=== PATIENT | male | born 1950 | race African-American/Black ===

== ENCOUNTER 2019-06-01 16:19 | Inpatient (IN) | payer MEDICARE, OTHER ==
[~2019-06-01] VITALS: Ht 188 cm; Wt 78.5 kg
[~2019-06-01 16:19] MED LIST: ALBUTEROL2.5 MG/3 M HHN; ALBUTEROL2.5 MG/3 M INH; AMLODIPINE BESY10 MG PO; ASPIR 8181 MG ORAL; ASPIRIN EC325 MG ORAL; ATORVASTATIN CA40 MG ORAL; CARDIAZEM CD240 MG ORAL; CARDIZEM CD180 MG ORAL; CARDIZEM CD240 MG ORAL; CARDIZEM60 MG ORAL; CATAPRES0.1 MG ORAL; DULERA 200 MCG/13 GM IH; ECOTRIN81 MG ORAL; FERROUS SULFAT325 M2 ORAL; FERROUS SULFAT325 MG ORAL; FINASTERIDE5 MG PO; FLOMAX0.4 MG ORAL; FUROSEMIDE40 MG ORAL; FUROSEMIDE80 MG ORAL; HYDRALAZINE HCL50 MG ORAL; HYDROCHLOROTH12.5 M1 PO; HYTRIN5 MG PO; INDERAL10 MG ORAL; JANUVIA50 MG ORAL; KEFLEX500 M1 PO; LASIX20 M1 ORAL; LIPITOR80 MG ORAL; LISINOPRIL20 MG ORAL; LISINOPRIL40 MG ORAL; MAGNESIUM OXID400 M1 ORAL; METOPROLOL SUC100 MG ORAL; METOPROLOL TART50 MG ORAL; NEURONTIN300 MG ORAL; NORCO 5-325 TA1 EAC1 ORAL; NORCO 5-325 TA1 EACH ORAL; NORVASC2.5 MG PO; PROMETHAZINE-C118 M1 ORAL; PROSCAR5 MG ORAL; QVAR7.3 GM INH; RANITIDINE HCL150 MG ORAL; SPIRIVA INHALE1 PUF1 INH; SPIRIVA18 MCG INH; SPIRONOLACTONE100 MG ORAL; TAMSULOSIN HCL0.4 MG ORAL; TAPAZOLE10 MG ORAL; TAPAZOLE5 MG ORAL; TRAMADOL HCL50 MG ORAL; VENTOLIN HFA18 GM INH; WARFARIN SODIU2.5 MG ORAL; XARELTO10 MG ORAL; XARELTO15 MG ORAL; ZAROXOLYN2.5 MG ORAL
[2019-06-01 16:35] VITALS: BP 106/67
--- NOTE | 2019-06-01 16:35 | NUR ---
Patient ANA from [facility] d/t 11/28 aching upper left chest pain x 60 minutes. Patient has hx of MA and stroke. Patient states the chest pain does not feel like chest pain he previously had, currently has no complaint of chest pain. 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 No s/s of acute distress noted.
[2019-06-01] MEDS ORDERED: Ipratropium 0.02% Inh Soln 2.5ml UD HHN ONE (16:45)
[2019-06-01] MEDS ORDERED: Albuterol ud Inhalation HHN ONE (16:45)
[2019-06-01 17:28] LABS: INR 1.2 (0.9-1.1)
[2019-06-01 17:29] LABS: ANION GAP 12 mmol/L (5-15); BLOOD UREA NITROGEN 41 mg/dL (7-18); CARBON DIOXIDE 24 MMOL/L (21-32); CHLORIDE 103 MMOL/L (98-107); CREATININE 1.3 MG/DL (0.55-1.30); POTASSIUM 4.2 MMOL/L (3.5-5.1); SODIUM 139 MMOL/L (136-145)
[2019-06-01 17:40] LABS: ALANINE AMINOTRANSFERASE 27 U/L (12-78); ALBUMIN 3.1 G/DL (3.4-5.0); ALBUMIN/GLOBULIN RATIO 0.8 (1.0-2.7); ALKALINE PHOSPHATASE 89 U/L (46-116); ASPARTATE AMINO TRANSFERASE 24 U/L (15-37); BILIRUBIN,TOTAL 0.5 MG/DL (0.2-1.0)
[2019-06-01 18:35] VITALS: BP 98/84
--- NOTE | 2019-06-01 19:12 | NUR ---
ED Nurse Note: Handoff report given to Lucinda YANES
--- NOTE | 2019-06-01 19:15 | NUR ---
ED Nurse Note: Pt report received from FARZANA Raymond. Pt is in no acute distress at this time. RN bedside for belongings list and blood draw. Vital signs are stable. Awaiting on bed on unit, will continue to monitor.
--- NOTE | 2019-06-01 19:33 | NUR ---
ED Nurse Note: Patient refusing blood redraw. Dr. Choi aware. Lab marketing performance analyst at bedside to draw blood, patient also refusing marketing performance analyst.
--- NOTE | 2019-06-01 19:40 | NUR ---
ED Nurse Note: Pt instructed that he needed IV for floor admision and blood draw. Pt agreed. IV line in R ac established. Pt was uncoopeative and pt moved down in bed after being instructed not to do so due to fall risk and IV line was no longer patent. New IV established in R forearm.
--- NOTE | 2019-06-01 20:05 | NUR ---
ED Nurse Note: Labs drawn by RN and sent to lab.
--- NOTE | 2019-06-01 20:30 | NUR ---
ED Nurse Note: Receiving nurse on floor informed of patient uncooperative behavior and pulling of IV lines.
--- NOTE | 2019-06-01 20:30 | NUR ---
ED Nurse Note: Report given to FARZANA Gay.
--- NOTE | 2019-06-01 20:31 | Emergency Room Report ---
History of Present Illness General Chief Complaint: Chest Pain Source: Patient, Medical Record Present Illness HPI 69-year-old male presents ED for evaluation. Brought in by EMS complaining of chest pain. Started about 30 minutes ago. [facility] Chest pain was left-sided, cramping, 7 out of 10, nonradiating. Was given nitro x2 by EMS with chest pain resolved. Notes shortness of breath. Notes history of COPD. Denies fevers or chills. No other aggravating relieving factors. Denies any other associated symptoms Allergies: Coded Allergies: NO KNOWN DRUG ALLERGIES (Unverified Allergy, Unknown, 06/18/14) Patient History Past Medical History: HTN, CHF, AFib, asthma, COPD, CVA/TIA, renal disease Past Surgical History: none Pertinent Family History: none Social History: Denies: smoking, alcohol use, drug use Immunizations: UTD Reviewed Nursing Documentation: PMH: Agreed; PSxH: Agreed Nursing Documentation-PMH Past Medical History: No History, Except For Hx Cardiac Problems: Yes - A-fib, CHF, PVD, STENT Hx Hypertension: Yes - MRSA Hx Pacemaker: No Hx Asthma: Yes Hx COPD: Yes Hx Diabetes: No Hx Cancer: No Hx Gastrointestinal Problems: No Hx Dialysis: Yes - Kidney failure Hx Neurological Problems: Yes - BPH Hx Cerebrovascular Accident: Yes - left sided weakness Hx Transient Ischemic Attacks: Yes Hx Seizures: No Review of Systems All Other Systems: negative except mentioned in HPI Physical Exam Vital Signs Date Time Temp Pulse Resp B/P (MAP) Pulse Ox O2 Delivery O2 Flow Rate FiO2 06/01/19 16:29 97.9 75 18 106/67 (80) 99 Nasal Cannula 3.0 Sp02 EP Interpretation: reviewed, normal General Appearance: no apparent distress, alert, GCS 15, non-toxic Head: normocephalic, atraumatic Eyes: bilateral eye normal inspection, bilateral eye PERRL ENT: hearing grossly normal, normal pharynx, no angioedema, normal voice Neck: full range of motion, supple/symm/no masses Respiratory: chest non-tender, speaking full sentences, wheezing Cardiovascular #1: regular rate, rhythm, no edema Cardiovascular #2: 2+ carotid (R), 2+ carotid (L), 2+ radial (R), 2+ radial (L) , 2+ dorsalis pedis (R), 2+ dorsalis pedis (L) Gastrointestinal: normal bowel sounds, non tender, soft, non-distended, no guarding, no rebound Rectal: deferred Genitourinary: normal inspection, no CVA tenderness Musculoskeletal: back normal, normal range of motion, gait/station normal, non- tender Neurologic: alert, motor strength/tone normal, oriented x3, sensory intact, responsive, speech normal Psychiatric: judgement/insight normal, memory normal, mood/affect normal, no suicidal/homicidal ideation Reflexes: 3+ bicep (R), 3+ bicep (L), 3+ tricep (R), 3+ tricep (L), 3+ knee (R) , 3+ knee (L) Lymphatic: no adenopathy Medical Decision Making Diagnostic Impression: Primary Impression: ACS (acute coronary syndrome) Additional Impressions: COPD exacerbation CHF (congestive heart failure) Qualified Codes: I50.9 - Heart failure, unspecified Anemia Qualified Codes: D64.9 - Anemia, unspecified ER Course Hospital Course 69 yo male presents ED for chest pain. Shortness of breath Differential diagnoses include: TX/unstable angina, contusion, muscle strain, PTX, rib fracture Clinical course Patient placed on stretcher. 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 After initial history and physical I ordered labs, EKG, chest x-ray, nebs labs reviewed- trop 0.036, BNP elevated, Hb 5.0 EKG- afib, no acute ischemic changes interpreted by me Chest x-ray- cardiomegaly Given breathing treatments. Given aspirin. Blood ordered. Case discussed with Dr. Bhatt and he agreed to accept the patient to his service for further care and support I. I feel this is a highly complex case requiring extensive working including EKG/Rhythm strip, Xray/CT/US, Blood/urine lab work, repeat exams while in ED, and administration of strong opiates/narcotics for pain control, admission to hospital or close patient follow up. Diagnosis - ACS, COPD, CHF, anemia admitted to telemetry in serious condition Labs Test 06/01/19 16:45 06/01/19 17:15 06/01/19 20:00 Prothrombin Time 12.7 SEC (9.30-11.50) Prothromb Time International Ratio 1.2 (0.9-1.1) Activated Partial Thromboplast Time 25 SEC (23-33) Sodium Level 139 MMOL/L (136-145) Potassium Level 4.2 MMOL/L (3.5-5.1) Chloride Level 103 MMOL/L (98-107) Carbon Dioxide Level 24 MMOL/L (21-32) Anion Gap 12 mmol/L (5-15) Blood Urea Nitrogen 41 mg/dL (7-18) Creatinine 1.3 MG/DL (0.55-1.30) Estimat Glomerular Filtration Rate > 60 mL/min (>60) Glucose Level 92 MG/DL (74-106) Calcium Level 9.0 MG/DL (8.5-10.1) Total Bilirubin 0.5 MG/DL (0.2-1.0) Aspartate Amino Transf (AST/SGOT) 24 U/L (15-37) Alanine Aminotransferase (ALT/SGPT) 27 U/L (12-78) Alkaline Phosphatase 89 U/L (46-116) Troponin I 0.036 ng/mL (0.000-0.056) Pro-B-Type Natriuretic Peptide 1896 pg/mL (0-125) Total Protein 6.9 G/DL (6.4-8.2) Albumin 3.1 G/DL (3.4-5.0) Globulin 3.8 g/dL Albumin/Globulin Ratio 0.8 (1.0-2.7) White Blood Count 6.5 K/UL (4.8-10.8) Red Blood Count 2.23 M/UL (4.70-6.10) Hemoglobin 5.0 G/DL (14.2-18.0) Hematocrit 17.5 % (42.0-52.0) Mean Corpuscular Volume 79 FL (80-99) Mean Corpuscular Hemoglobin 22.4 PG (27.0-31.0) Mean Corpuscular Hemoglobin Concent 28.4 G/DL (32.0-36.0) Red Cell Distribution Width 20.5 % (11.6-14.8) Platelet Count 168 K/UL (150-450) Mean Platelet Volume 7.0 FL (6.5-10.1) Neutrophils (%) (Auto) % (45.0-75.0) Lymphocytes (%) (Auto) % (20.0-45.0) Monocytes (%) (Auto) % (1.0-10.0) Eosinophils (%) (Auto) % (0.0-3.0) Basophils (%) (Auto) % (0.0-2.0) Differential Total Cells Counted 100 Neutrophils % (Manual) 54 % (45-75) Lymphocytes % (Manual) 29 % (20-45) Monocytes % (Manual) 16 % (1-10) Eosinophils % (Manual) 1 % (0-3) Basophils % (Manual) 0 % (0-2) Band Neutrophils 0 % (0-8) Nucleated Red Blood Cells 3 /100 WBC Platelet Estimate Decreased Platelet Morphology Normal Polychromasia 2+ Hypochromasia 2+ Anisocytosis 2+ Microcytosis 2+ EKG Diagnostic Results Rate: normal Rhythm: other - afib ST Segments: no acute changes ASA given to the pt in ED: Yes Rhythm Strip Diag. Results EP Interpretation: yes Rhythm: NSR, no PVC's, no ectopy Chest X-Ray Diagnostic Results Chest X-Ray Diagnostic Results : Chest X-Ray Ordered: Yes # of Views/Limited/Complete: 1 View Indication: Chest Pain EP Interpretation: Yes Interpretation: no consolidation, no effusion, no pneumothorax, no acute cardiopulmonary disease, other - cardiomegaly Impression: No acute disease Electronically Signed by: Electronically signed by Malik Choi MD Last Vital Signs Date Time Temp Pulse Resp B/P (MAP) Pulse Ox O2 Delivery O2 Flow Rate FiO2 06/01/19 18:35 98.1 68 19 98/84 99 Room Air 06/01/19 16:35 3.0 Status: improved Disposition: ADMITTED INPATIENT Condition: Serious Referrals: NON PHYSICIAN (PCP) Malik Choi MD Jun 01, 2019 20:31
[2019-06-01 20:32] LABS: HEMATOCRIT 17.5 % (42.0-52.0); MEAN CORPUSCULAR VOLUME 79 FL (80-99); PLATELET COUNT 168 K/UL (150-450); RED BLOOD COUNT 2.23 M/UL (4.70-6.10); RED CELL DISTRIBUTION WIDTH 20.5 % (11.6-14.8); WHITE BLOOD COUNT 6.5 K/UL (4.8-10.8)
--- NOTE | 2019-06-01 20:45 | NUR ---
ED Nurse Note: Pt stable to transport to unit per DINORAH at this time. Pt is aaox4, no acute distress noted. VSS. Pt taken to unit via gurney by tech/RN, connected to monitor and storage bin tender. Pt belongings sent with pt. Plan to transfuse PRBCs on floor endorsed to RN and Ok'd by ERMKennedy who spoke with admitting doctor.
[2019-06-01 21:00] VITALS: BP 122/83
--- NOTE | 2019-06-01 21:00 | NUR ---
NURSE NOTES: Pt admitted from ER. Received report from FARZANA Pruett. Pt is resting on the bed and awake and alert and forgetful. Pt is agitated and uncooperative amd resisting care. Pt refused skin assessment on back site. Noted cellulitis on Both leg area with swelling. Applied Tele monitor and Given admission instruction. Checked belonging list but Pt doesn't have shirt at this time. Pt refused to save money to safe. Explained benefits and risks. IV site leaking. Applied new gown but pt refused cleaning at this time. noted Hgb 5.0 but no sign of active bleeding at this time. Denied chest pain at this time. Placed fall precaution. Will continue to care plan. Paged Dr. Tucker for admission order and awaiting call back.
--- NOTE | 2019-06-01 21:31 | NUR ---
NURSE NOTES: Get call back from Dr. Fitzgerald and received admission order and he want to give total PRBC 3 unit blood transfusion. Carried out.
[2019-06-01] MEDS ORDERED: Albuterol/Ipratropium 3ml neb HHN PRN (21:45)
[2019-06-01] MEDS ORDERED: Pantoprazole 80 MG in NS 250 ML IV SCH (21:45)
--- NOTE | 2019-06-01 21:50 | NUR ---
NURSE NOTES: Dr. Stiles and visited assessed Pt. Dr. martinez explained regarding blood transfusion and benefits and risks but Pt refused blood transfusion at this time. Will continue to monitor any change of condition.
--- NOTE | 2019-06-01 22:11 | NUR ---
NURSE NOTES: Discuss with patient regarding blood transfusion and still refused blood transfusion at this time and resisting care. Explained benefits and risks. Will continue to monitor any change of condition.
--- NOTE | 2019-06-01 23:10 | NUR ---
NURSE NOTES: Discuss with Pt regarding blood transfusion and has agree with blood transfusion. Explained sign of adverse reaction. Started 1 unit PRBC blood transfusion. checked V/S BT: 97.6, HR: 96, BP: 110/74mmHg. Pt still refused insert other IV line for Protonix drip. Explained benefit and risks. Pt is agitated and resisting care still insist to eat regular food. Explained Pt regarding diet but he didn't understand. Paged Dr. Tucker and awaiting call back.
[2019-06-01] MEDS ORDERED: Pantoprazole Inj ONE (23:14)
--- NOTE | 2019-06-01 23:25 | NUR ---
NURSE NOTES: On running with PRBC and no sign of adverse reaction. Will continue to monitor any change of condition.
--- NOTE | 2019-06-01 23:49 | General Progress Note ---
Assessment/Plan Assessment/Plan: GI CONSULT Dictated Thank you Yara Stiles MD Subjective Allergies: Coded Allergies: NO KNOWN DRUG ALLERGIES (Unverified Allergy, Unknown, 06/18/14) Objective Last 24 Hour Vital Signs Date Time Temp Pulse Resp B/P (MAP) Pulse Ox O2 Delivery O2 Flow Rate FiO2 06/01/19 18:35 98.1 68 19 98/84 99 Room Air 06/01/19 17:09 88 20 100 Room Air 90 17 100 06/01/19 16:35 97.9 65 18 106/67 99 Room Air 06/01/19 16:35 75 18 Nasal Cannula 3.0 06/01/19 16:29 97.9 75 18 106/67 (80) 99 Nasal Cannula 3.0 Laboratory Tests 06/01/19 16:45: Prothrombin Time 12.7H, Prothromb Time International Ratio 1.2H, Activated Partial Thromboplast Time 25, Sodium Level 139, Potassium Level 4.2, Chloride Level 103, Carbon Dioxide Level 24, Anion Gap 12, Blood Urea Nitrogen 41H, Creatinine 1.3, Estimat Glomerular Filtration Rate > 60, Glucose Level 92, Calcium Level 9.0, Total Bilirubin 0.5, Aspartate Amino Transf (AST/SGOT) 24, Alanine Aminotransferase (ALT/SGPT) 27, Alkaline Phosphatase 89, Troponin I 0.036, Pro-B-Type Natriuretic Peptide 1896H, Total Protein 6.9, Albumin 3.1L, Globulin 3.8, Albumin/Globulin Ratio 0.8L 06/01/19 17:15: Stool Occult Blood [Pending] 06/01/19 20:00: White Blood Count 6.5, Red Blood Count 2.23L, Hemoglobin 5.0*L, Hematocrit 17.5L , Mean Corpuscular Volume 79L, Mean Corpuscular Hemoglobin 22.4L, Mean Corpuscular Hemoglobin Concent 28.4L, Red Cell Distribution Width 20.5H, Platelet Count 168, Mean Platelet Volume 7.0, Neutrophils (%) (Auto) , Lymphocytes (%) (Auto) , Monocytes (%) (Auto) , Eosinophils (%) (Auto) , Basophils (%) (Auto) , Differential Total Cells Counted 100, Neutrophils % ( Manual) 54, Lymphocytes % (Manual) 29, Monocytes % (Manual) 16H, Eosinophils % ( Manual) 1, Basophils % (Manual) 0, Band Neutrophils 0, Nucleated Red Blood Cells 3, Platelet Estimate DecreasedL, Platelet Morphology Normal, Polychromasia 2+, Hypochromasia 2+, Anisocytosis 2+, Microcytosis 2+ Height (Feet): 6 Height (Inches): 3.00 Weight (Pounds): 173 Eddie Stiles MD Jun 01, 2019 23:49
[2019-06-02] VITALS: BP 136/74
--- NOTE | 2019-06-02 01:50 | NUR ---
NURSE NOTES: Finished first PRBC blood transfusion without adverse reaction and started 2nd blood transfusion. Reeducated Pt regarding side effect of blood transfusion. Checked V/S BP: 139/77, HR: 96, BT: 97.8F. Will continue to monitor any change of condition.
--- NOTE | 2019-06-02 02:05 | NUR ---
NURSE NOTES: 2nd PRB blood running well without side effect. Will continue to monitor.
[2019-06-02] MEDS ORDERED: MULTIVITAMINS1 EA13 ORAL (02:27)
[2019-06-02] MEDS ORDERED: DIPHENHYDRAMINE25 M1 ORAL (02:27)
[2019-06-02] MEDS ORDERED: VITAMIN C500 M1 ORAL (02:27)
[2019-06-02] MEDS ORDERED: CEPACOL SORETH1 EACH ORAL (02:27)
[2019-06-02] MEDS ORDERED: TRAMADOL HCL50 MG ORAL (02:27)
[2019-06-02] MEDS ORDERED: COLACE100 MG ORAL (02:27)
[2019-06-02] MEDS ORDERED: NITRO0.4 SL (02:27)
[2019-06-02] MEDS ORDERED: PLAVIX75 MG ORAL (02:27)
[2019-06-02] MEDS ORDERED: ACETAMINOPHEN325 M1 ORAL (02:27)
[2019-06-02] MEDS ORDERED: ELIQUIS5 MG PO (02:27)
[2019-06-02] MEDS ORDERED: MILK OF MA400 MG/51 ORAL (02:27)
[2019-06-02] MEDS ORDERED: AMLODIPINE BESY10 MG ORAL (02:27)
[2019-06-02] MEDS ORDERED: ASPIRIN-LOW81 MG ORAL (02:27)
[2019-06-02] MEDS ORDERED: FLEET ENEMA133 ML RECTAL (02:27)
[2019-06-02] MEDS ORDERED: TORSEMIDE20 MG ORAL (02:27)
[2019-06-02] MEDS ORDERED: DULCOLAX10 MG RC (02:27)
[2019-06-02 04:00] VITALS: BP 112/66
--- NOTE | 2019-06-02 05:10 | NUR ---
NURSE NOTES: Finished 2nd PRBC blood transfusion without side effect and started 3rd PRBC blood transfusion. Checked V/S BP: 117/67, HR: 74, BT: 97.9F SaO2 98% noted. Pt is sleeping on the bed and no sign of acute distress noted.
--- NOTE | 2019-06-02 07:25 | NUR ---
NURSE NOTES: RECEIVED BED SIDE REPORT FROM [employer] .RECEIVED PT RESTING IN BED AWAKE AND ALERT ,RECEIVING A BLOOD TRANSFUSION 3RD UNIT OF P-RBC,INFUSING WELL BLOOD TRANSFUSION,NO S/S OF ANY ADVERSE REACTIONS NOTED AT THIS TIME,V/S STABLE.FULL BODY ASSESSMENT DONE. NO ACUTE DISTRESS NOTED . WILL CONT TO MONITOR.
--- NOTE | 2019-06-02 07:33 | NUR ---
HAND-OFF: Report given to FARZANA Serna. Pt is resting on the bed and no sign of acute distress noted on running with PRBC blood transfusion.
[2019-06-02 08:00] VITALS: BP 108/71
--- NOTE | 2019-06-02 09:30 | NUR ---
NURSE NOTES:BLOOD TRANSFUSION DONE. PT TOLERATED WELL BLOOD TRANSFUSION ,NO EVIDENCE OF ANY ADVERSE REACTION NOTED AT THIS TIME. WILL CONT TO MONITOR.
[2019-06-02] MEDS: Pantoprazole Inj IVP SCH (10:17)
--- NOTE | 2019-06-02 10:30 | Diagnostic Imaging Report ---
. Indication: Chest pain Technique: One view of the chest Comparison: 09/09/2015 Findings: The heart is borderline enlarged. There is some atelectasis at the left lateral lung base. There is possibly a small left pleural effusion. The remainder of the lungs and pleural spaces are clear. No infiltrates or congestion. Impression: Left lateral basilar atelectasis and possible small pleural effusion Borderline cardiomegaly
--- NOTE | 2019-06-02 11:30 | Consultation ---
DATE OF CONSULTATION: 06/01/2019 GASTROENTEROLOGY CONSULTATION CONSULTING PHYSICIAN: Eddie Stiles M.D. CHIEF COMPLAINT: I was asked to see this patient by Dr. Jermaine Tucker for evaluation of severe anemia. HISTORY OF PRESENT ILLNESS: The patient is a 69-year-old man who was brought in from [facility] with half an hour of chest discomfort. The patient was seen in the emergency room and he was noted to have severe anemia, which was repeated and confirmed. The patient denies any abdominal pain, nausea, vomiting, or melena. It seems he may have had endoscopy and colonoscopy a few days ago, but he cannot recall when or details. He does have multiple medical problems including congestive heart failure and COPD. These are all listed below. He was seen with the nursing staff and ordered to have some blood transfusion. However, he initially refused the blood transfusion, and I advised the patient that this is severe anemia and is likely low flow induced chest pain that he is at risk for cardiac arrest or or stroke or any other consequences of severe anemia. All three nurses were in the room when this discussion was held. PAST MEDICAL HISTORY: History of congestive heart failure, gait abnormality, stroke, muscle weakness, COPD, history of disc herniation, renal failure, hypertension, heart failure, anemia, hyperlipidemia, prostatic hypertrophy, amyloidosis, peripheral vascular disease, history of coronary angioplasty with implanted graft, history of MRSA. FAMILY HISTORY: Noncontributory. SOCIAL HISTORY: The patient does not smoke or drink alcohol. He does not have kids. He is not . MEDICATIONS: None. PHYSICAL EXAMINATION: GENERAL: Elderly man, seen by the nursing staff in his room. HEENT: Normocephalic and atraumatic. NECK: Supple. CHEST: Revealed coarse breath sounds. CARDIOVASCULAR: Revealed regular rate. ABDOMEN: Soft, nontender, nondistended. EXTREMITIES: Revealed no edema. LABORATORY DATA: Noted. ASSESSMENT: This patient has severe anemia with some chest pain. The chest pain is presumably due to low perfusion and needed to be treated with blood transfusion. The patient currently completing blood transfusion by the time of this dictation is prepared. His EKG changes are concerning as he has atrial fibrillation with changes consistent with large lateral infarct and therefore he should be seen by solutions consultant. The cause of his severe anemia is unclear since he does not have signs or symptoms of acute gastrointestinal bleeding. He does carry a diagnosis of and therefore a bone marrow would have to be investigated Hematology consult can be considered. Stools will be checked for occult blood to see if he does indeed have gastrointestinal bleeding. The patient has been monitored very closely and proton pump inhibitor should be given. RECOMMENDATIONS: 1. Clear liquid diet for tonight. 2. Proton pump inhibitor and decrease the blood transfusion as written. 3. Follow CBC. 4. Cardiology consultation. 5. Consider a Hematology input. Thank you for asking me to participate in the care of this patient. Eddie Stiles M.D. DR: Cynthia JOB#: [id number] CC: SHIMON
[2019-06-02 12:00] VITALS: BP 118/77
[2019-06-02 14:53] LABS: HEMATOCRIT 24.1 % (42.0-52.0); HEMOGLOBIN 7.6 G/DL (14.2-18.0); MEAN CORPUSCULAR VOLUME 80 FL (80-99); PLATELET COUNT 148 K/UL (150-450); RED BLOOD COUNT 3.02 M/UL (4.70-6.10); RED CELL DISTRIBUTION WIDTH 18.3 % (11.6-14.8); WHITE BLOOD COUNT 7.9 K/UL (4.8-10.8)
--- NOTE | 2019-06-02 15:00 | NUR ---
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 97.8 HR 75 RR 18 B/P 106/37 3L NC H/H 5.0/17.5 BNP 6 BUN 41 IS; ALB HHN ATROVENT HHN ADMITTED TO STEP DOWN@ 2044 STEP DOWN DCP RETURN TO [facility] [facility]
[2019-06-02 15:42] LABS: % IRON SATURATION 5 % (15-50); IRON 17 ug/dL (50-175); TOTAL IRON BINDING CAPACITY 376 ug/dL (250-450)
[2019-06-02 16:00] VITALS: BP 106/70
[2019-06-02] MEDS ORDERED: Nulytely 4L ORAL SCH (16:00)
--- NOTE | 2019-06-02 16:00 | NUR ---
NURSE NOTES : RECEIVED A TELEPHONE CALL FROM DR LUO AND HE REQUEST TO TALK WITH THE PT. DR LUO EXPLAINED TO THE PT REGARDING ENDOSCOPY AND COLONOSCOPY PROCEDURE.PT AGREE TO HAVE BOTH PROCEDURES . PT SIGNED CONSENT FOR ENDOSCOPY AND COLONOSCOPY WITH POSSIBLE BIOPSY ,POLYPECTOMY AND HEMOSTASIS.PT ENCOURAGED TO DRINK GOLYTELY PER M.D ORDERS. DR LUO MADE AWARE & NOTIFIED REGARDING HGB 7.6 AND TROPONIN0.048. NO BLOOD TRANSFUSION ORDERS NOTED AT THIS TIME. WILL CONT TO MONITOR.
[2019-06-02 16:24] LABS: ANION GAP 10 mmol/L (5-15); CALCIUM 8.8 MG/DL (8.5-10.1); CARBON DIOXIDE 28 MMOL/L (21-32); CHLORIDE 103 MMOL/L (98-107); CREATININE 1.3 MG/DL (0.55-1.30); FERRITIN 42 NG/ML (8-388); POTASSIUM 4.3 MMOL/L (3.5-5.1); SODIUM 141 MMOL/L (136-145)
[2019-06-02 16:29] LABS: BLOOD UREA NITROGEN 37 mg/dL (7-18)
--- NOTE | 2019-06-02 18:15 | History and Physical Report ---
DATE OF ADMISSION: 06/01/2019 CHIEF COMPLAINT AND REASON FOR HOSPITALIZATION: The patient is admitted with severe anemia. HISTORY OF PRESENT ILLNESS: The patient is a 69-year-old male, who presents with some shortness of breath, chest discomfort, and severe anemia. He is not aware of bleeding, but he is on anticoagulants. He does not have any abdominal pain, nausea, or vomiting. There is a history of CHF, COPD, peripheral vascular disease. He recently underwent surgery at [facility] for right leg wound. There is a prior CVA with left-sided weakness. ALLERGIES: None known. HOME MEDICATIONS: Listed in the computer include Tylenol, albuterol inhaler, amlodipine, Eliquis, ascorbic acid, aspirin, Dulcolax suppository, Plavix, Cepacol, diphenhydramine, Colace, [place], magnesium hydroxide, nitroglycerin p.r.n., fleets enema p.r.n., Demadex, tramadol. HABITS: He is a former smoker, quit about 9 years ago. No alcohol or drugs. SURGERIES: Right leg procedure at [facility] recently. He has had peripheral vascular disease and angiographies and I believe PCI. SYSTEM REVIEW: HEAD, EYES, EARS, NOSE, AND THROAT: He has diminished visual acuity after a stroke with left-sided weakness. His hearing is good. ENDOCRINE: No diabetes or thyroid disease. PULMONARY: COPD as above. No current shortness of breath. CARDIAC: He had a vague chest discomfort on admission. No history of typical angina. No recurrent chest pain or arrhythmias. There is listed diagnosis of CHF. GASTROINTESTINAL: See above. He has had prior colonoscopies apparently negative. GENITOURINARY: He states he is voiding with good stream. Nocturia x2. NEUROLOGIC: History of CVA with left-sided weakness. No residual. OTHER: There is a listed diagnosis of amyloidosis. He also had a bone marrow at [facility] apparently recently, but I do not have any documentation at this time. There is also apparently a prior history of cardiomyopathy and atrial fibrillation. He was hospitalized in this hospital in August of 2015 with CHF and atrial fibrillation. PHYSICAL EXAMINATION: GENERAL: The patient is alert, thin man, in no acute distress. VITAL SIGNS: Temperature 97.7, pulse 68, respirations 20, blood pressure 118/77. HEAD, EYES, EARS, NOSE, AND THROAT: Sclerae are nonicteric. Ocular motions intact in all directions. Oral mucosa moist. NECK: No adenopathy or thyroid enlargement. LUNGS: Clear. HEART: Regular rate and rhythm. No murmur. ABDOMEN: Soft without organomegaly or masses. EXTREMITIES: No edema, cyanosis, or clubbing. There is a large dressing on the right leg. NEUROLOGIC: He is alert and oriented. Cranial nerves are intact. No focal weakness. LABORATORY AND DIAGNOSTIC DATA: Pertinent labs show hemoglobin 5, hematocrit is 7.5, microcytic. Electrolytes normal. BUN 41, creatinine 1.3. Troponin 0.036. BNP 1896. INR is 1.2. IMPRESSION: 1. Anemia, microcytic likely due to Eliquis and GI bleeding. 2. Per patient negative bone marrow. 3. COPD. 4. Chronic CHF. 5. Paroxysmal atrial fibrillation. PLAN: The patient is being transfused. Get GI consultation. Stop anticoagulants. Watch closely in view of cardiomyopathy. Enoc Glover M.D. DR: CAIO JOB#: [id number] CC:
--- NOTE | 2019-06-02 19:25 | NUR ---
HAND-OFF: Report given to .JENNIFER YANES.
--- NOTE | 2019-06-02 19:46 | NUR ---
NURSE NOTES: Received report from FARZANA Serna. The patient is observed resting in chair. Pt remains alert and oriented x2-3, currently denies pain. Pt remains in controlled AFib on tele monitor with no s/sx of cardiac distress. Pt is on RA with an O2 saturation of 97% noted and no s/sx of distress. Left leg cellulitis noted otherwise skin remains intact. R Hand 22g IV catheter noted which remains asymptomatic, intact and patent. Pt able to ambulate but encouraged to use call light. Diagnostics and lab results reviewed. Will continue plan of care. Will continue to monitor.
--- NOTE | 2019-06-02 19:50 | NUR ---
NURSE NOTES: Pt room noted to be very cold; work order put in and engineering contacted. Per [place] in engineering, unable to fix room temperature due to air conditioning unit malfunction. Advised engineering this is a patient safety issue, patients ambulating in hallway because of it. Notified charge histotechnologist. Will change patient room for safety reasons. Will continue to monitor.
[2019-06-02 20:00] VITALS: BP 114/74
--- NOTE | 2019-06-02 20:00 | NUR ---
NURSE NOTES: Pt is noncompliant with regard to safety considerations. Pt feels and counts buttons to turn bed alarm off. Pt refuses to use call light and found wandering halls numerous times. Pt educated on safety, fall hazards and risks with regard to being legally blind. Pt states that he knows his limits and will continue to ambulate without assistance as he pleases. Frequent patient rounds made. Will continue to monitor and educate.
--- NOTE | 2019-06-02 21:32 | General Progress Note ---
Assessment/Plan Assessment/Plan: Assessment - Severe anemia - s/p transfusion - chest pain- negative troponin - Amyloid - CM - a fib - CVA Recommendations - clear liquids - follow CBC - transfuse PRN - EGD / colon Friday - 72 hrs after last Eliquis and Plavix Subjective Allergies: Coded Allergies: NO KNOWN DRUG ALLERGIES (Unverified Allergy, Unknown, 06/18/14) Subjective Feels ok walking around no melena d/w PMD - re EGD/colon d/w cardiology - cleared for GI endoscopy d/w [facility] - last eliquis and Plavix given yesterday at 0900 Objective Last 24 Hour Vital Signs Date Time Temp Pulse Resp B/P (MAP) Pulse Ox O2 Delivery O2 Flow Rate FiO2 06/02/19 20:00 97.4 85 20 114/74 (87) 94 06/02/19 19:42 95 Nasal Cannula 3.0 32 06/02/19 19:42 76 20 95 Nasal Cannula 3.0 32 06/02/19 16:00 Nasal Cannula 3.0 06/02/19 16:00 97.9 78 20 106/70 (82) 94 06/02/19 16:00 72 06/02/19 12:00 68 06/02/19 12:00 Nasal Cannula 3.0 06/02/19 12:00 97.7 71 20 118/77 (91) 94 06/02/19 08:00 Nasal Cannula 3.0 06/02/19 08:00 77 06/02/19 08:00 96.7 75 20 108/71 (83) 97 06/02/19 04:00 Nasal Cannula 3.0 06/02/19 04:00 80 06/02/19 04:00 98.3 75 20 112/66 (81) 97 06/02/19 00:00 Nasal Cannula 3.0 06/02/19 00:00 97.6 74 20 136/74 (94) 98 06/01/19 23:32 89 06/01/19 22:00 Nasal Cannula 3.0 06/01/19 21:30 87 Intake and Output 06/01/19 06/02/19 19:00 07:00 Intake Total 1220 ml Output Total 1200 ml Balance 20 ml Intake Oral 720 ml Blood Product 500 ml Output Urine Total 1200 ml Laboratory Tests 06/02/19 14:45: White Blood Count 7.9, Red Blood Count 3.02L, Hemoglobin 7.6#L, Hematocrit 24.1# L, Mean Corpuscular Volume 80, Mean Corpuscular Hemoglobin 25.3L, Mean Corpuscular Hemoglobin Concent 31.7L, Red Cell Distribution Width 18.3H, Platelet Count 148L, Mean Platelet Volume 6.2L, Neutrophils (%) (Auto) , Lymphocytes (%) (Auto) , Monocytes (%) (Auto) , Eosinophils (%) (Auto) , Basophils (%) (Auto) , Differential Total Cells Counted 100, Neutrophils % ( Manual) 68, Lymphocytes % (Manual) 20, Monocytes % (Manual) 9, Eosinophils % ( Manual) 2, Basophils % (Manual) 1, Band Neutrophils 0, Platelet Estimate DecreasedL, Platelet Morphology Normal, Polychromasia 2+, Hypochromasia 2+, Anisocytosis 2+, Microcytosis 2+, Sodium Level 141, Potassium Level 4.3, Chloride Level 103, Carbon Dioxide Level 28, Anion Gap 10, Blood Urea Nitrogen 37H, Creatinine 1.3, Estimat Glomerular Filtration Rate > 60, Glucose Level 92, Calcium Level 8.8, Iron Level 17L, Total Iron Binding Capacity 376, Percent Iron Saturation 5L, Unsaturated Iron Binding 359H, Ferritin 42, Troponin I 0.048 Height (Feet): 6 Height (Inches): 3.00 Weight (Pounds): 173 Objective WDWN NCAT supple CTA Reg rate abd soft no edema Eddie Stiles MD Jun 02, 2019 21:32
--- NOTE | 2019-06-02 21:45 | Consultation ---
DATE OF CONSULTATION: 06/02/2019 CARDIOLOGY CONSULTATION CONSULTING PHYSICIAN: Milton Kraft M.D. REQUESTING PHYSICIAN: 1. Enoc Glover M.D. 2. Jermaine Tucker M.D. 3. Eddie Stiles M.D. REASON: Chest pain in the setting of atrial fibrillation and severe anemia. HISTORY OF PRESENT ILLNESS: This is a 69-year-old male, who resides at a care home facility. He was transferred to the emergency room for evaluation of chest discomfort that was unprovoked. He was noted to have severe anemia with a hemoglobin of around 5 g. At that time, he was transfused packed red blood cells. His troponin level x2 have been negative. His chest pain has recovered. He does have atrial fibrillation and review of prior records confirmed this is paroxysmal and not new in onset. I have been asked to assess cardiovascular risk for panendoscopy at this time. PAST MEDICAL HISTORY: 1. Iron deficiency with anemia. 2. COPD. 3. Hypertensive heart disease. 4. Congestive heart failure. 5. Degenerative disk disease with history of herniated disk and gait abnormality. 6. Cerebrovascular disease with history of cerebrovascular accident. 7. Hyperlipidemia. 8. Prostatic hypertrophy. 9. Chronic kidney disease. 10. Amyloidosis. 11. Peripheral artery disease. 12. Coronary artery disease with history of coronary stents. 13. Respiratory colonization with MRSA. SOCIAL HISTORY: Negative for smoking, alcohol, or substance abuse. MEDICATIONS: Prior to admission, reviewed and reconciled. FAMILY HISTORY: Noncontributory. REVIEW OF SYSTEMS: He does not recall his chest pain that occurred or if any occurred at the time of his coronary stents in the past. He denies any palpitations. He is on anticoagulation. He has had a prior stroke. He does take anti-platelet therapy namely aspirin and clopidogrel as well as Eliquis. He has been on anti-lipid drugs. There is no history of diabetes. PHYSICAL EXAMINATION: VITAL SIGNS: Blood pressure 118/77, heart rate 68, respiratory rate 20, and afebrile. HEENT: Conjunctival pallor. Oropharynx clear. NECK: Supple. No bruits or jugular venous distention. No thyromegaly or tracheal deviation. LUNGS: Bilateral coarse breath sounds. No wheezing. CARDIAC: Irregularly irregular rhythm. Normal S1 and S2. A 1/6 systolic murmur at apex. ABDOMEN: Soft and nontender. No masses. EXTREMITIES: No edema. NEUROLOGICAL: Grossly nonfocal. IMAGING DATA: EKG, atrial fibrillation with controlled ventricular rate and possible old lateral infarct. No acute abnormalities. Chest x-ray, small pleural effusion and atelectasis on the left. LABORATORY DATA: Labs, hemoglobin following transfusion 7.6 today. INR 1.2. Troponin negative x2. BUN 37 and creatinine 1.3. Potassium 4.3. Iron saturation 5%. Pro-natriuretic peptide is 1896. Albumin is 3.1. Stool occult blood is pending. IMPRESSION: 1. Acute myocardial ischemia precipitated by hypoperfusion due to severe anemia. 2. Severe anemia due to iron deficiency and possible gastrointestinal blood loss. 3. Acute on chronic diastolic congestive heart failure, clinically compensated. 4. Ischemic cardiomyopathy with history of coronary stents. 5. Hypertensive heart disease with controlled blood pressure. 6. Coagulopathy due to chronic use of apixaban. 7. Paroxysmal atrial fibrillation, rate controlled. PLAN: 1. Hold anti-platelet and anticoagulation at this time. 2. Topical nitrates. 3. Continue beta-blockade. 4. Maintenance hydration while NPO. 5. No diuresis at this time. 6. Proceed with panendoscopy, once off anticoagulant for 72 hrs. 7. Minimally increased perioperative cardiovascular risk is anticipated under routine anesthesia for this procedure. 8. Continue cardiac monitoring and close monitoring of blood counts at this time. 9. Maintaining hemoglobin above 7.5 g. Milton Kraft M.D. DR: MICHELE JOB#: [id number] CC: SHIMON
--- NOTE | 2019-06-02 22:15 | NUR ---
NURSE NOTES: Spoke with Dr Stiles regarding patient status. Dr Stiles stated he spoke with [facility] and was not aware that they continued to administer blood thinners; therefore unable to perform colonoscopy and EGD tomorrow due to safety concerns. Orders provided to change diet order back to clear liquids and to stop bowel prep. Carried out orders. Will continue to monitor.
--- NOTE | 2019-06-02 23:12 | NUR ---
NURSE NOTES: Pt refuses to use call light and found walking out of room again. Pt educated on safety, fall hazards and risks with regard to being legally blind. Pt states that he knows his limits and will continue to ambulate without assistance as he pleases. Frequent patient rounds made. Will continue to monitor and educate.
[2019-06-03] VITALS: BP 145/75
--- NOTE | 2019-06-03 00:21 | NUR ---
NURSE NOTES: Pt refuses to use call light and found walking out of room again. Pt removing cardiac leads and gown. Pt agitated and helped back to bed by myself and another RN. Pt refuses to be touched. Pt educated on safety, fall hazards and risks with regard to being legally blind. Pt states that he knows his limits and will continue to ambulate without assistance as he pleases. Frequent patient rounds made. Will continue to monitor and educate.
--- NOTE | 2019-06-03 01:26 | NUR ---
NURSE NOTES: Pt refuses to use call light and found walking in the hallway after turning off bed alarm. Pt taking gown and cardiac leads off. Pt refuses to be touched and further assistance. Pt educated on safety, fall hazards and risks with regard to being legally blind. Pt states that he knows his limits and will continue to ambulate without assistance as he pleases. Frequent patient rounds made. Will continue to monitor and educate.
--- NOTE | 2019-06-03 03:02 | NUR ---
NURSE NOTES: Pt refuses to use call light and found walking out of room again after turning bed alarm off by himself again. Pt educated on safety, fall hazards and risks with regard to being legally blind. Pt states he "dosent need 100 hands" on him and remains agitated at this time. Pt states he walks around at shelter. Pt states that he knows his limits and will continue to ambulate without assistance as he pleases. Again reminded patient of environmental hazards. Frequent patient rounds made. Will continue to monitor and educate.
--- NOTE | 2019-06-03 03:15 | NUR ---
NURSE NOTES: Spoke with lab regarding Fecal Occult Blood being cancelled as it was endorsed a fecal sample was sent to lab. Will recollect fecal sample and reinstitute order. Confirmed with Dr Stiles earlier this shift only one fecal occult blood to be ordered at this time.
--- NOTE | 2019-06-03 03:47 | NUR ---
NURSE NOTES: Pt had an episode of 11 beats of VTach. Pt is asymptomatic with no s/sx of distress noted. Pt declines 12 lead EKG and tossed call light at me. Will notify primary doctor. Pt remains resting in bed; bed remains in lowest position with safety wheels engaged, side rails up x3, bed alarm activated and call light placed back within reach. Will continue to monitor.
[2019-06-03 04:00] VITALS: BP 102/63
[2019-06-03 05:25] LABS: HEMATOCRIT 22.8 % (42.0-52.0); HEMOGLOBIN 7.3 G/DL (14.2-18.0); MEAN CORPUSCULAR VOLUME 79 FL (80-99); PLATELET COUNT 135 K/UL (150-450); RED BLOOD COUNT 2.88 M/UL (4.70-6.10); RED CELL DISTRIBUTION WIDTH 18.7 % (11.6-14.8); WHITE BLOOD COUNT 7.4 K/UL (4.8-10.8)
[2019-06-03 05:38] LABS: ANION GAP 7 mmol/L (5-15); BLOOD UREA NITROGEN 31 mg/dL (7-18); CALCIUM 9.1 MG/DL (8.5-10.1); CARBON DIOXIDE 28 MMOL/L (21-32); CHLORIDE 104 MMOL/L (98-107); CREATININE 1.3 MG/DL (0.55-1.30); SODIUM 139 MMOL/L (136-145)
--- NOTE | 2019-06-03 06:54 | NUR ---
NURSE NOTES: Pt found wandering hallway after turning off bed alarm by himself. Pt informed of delay of procedure. Pt educated as to why, lab values, prior blood transfusions and risks involved with procedure if it had not been delayed. Pt disappointed but agreeable. Pt escorted back to bed and agrees to room transfer. Pt remains resting in bed; bed remains in lowest position with safety wheels engaged, side rails up x3, bed alarm activated and call light within reach. Will continue to monitor.
--- NOTE | 2019-06-03 07:30 | NUR ---
INTER-FACILITY TRANSFER: Patient transferred to [facility], per Dr Collazo. Report given to FARZANA Sahu. Patient transferred with valuables and medications. Belongings verified upon transfer.
[2019-06-03 08:00] VITALS: BP 108/75
--- NOTE | 2019-06-03 08:01 | NUR ---
NURSE NOTES: pt standing up opening blinds. Pt 80% blind, and is unwilling to use call light and wait for assistance to get up from bed and use restroom "I don't want to be baby here" pt very irritated this morning. Pt on diagnostic cardiac sonographer, no signs of cardiac or respiratory distress. Call within reach. Bed is locked and in lowest position. Will continue to monitor pt and follow plans of care.
[2019-06-03] MEDS: Pantoprazole Inj IVP SCH (09:36)
--- NOTE | 2019-06-03 10:07 | NUR ---
NURSE NOTES: pt expressed concerns about the length of time [facility] will keep a bed for him. CM is Jackelyn but voice mail is full so Notified and left a message for Shanice.
[2019-06-03 12:00] VITALS: BP 105/71
--- NOTE | 2019-06-03 12:03 | General Progress Note ---
Assessment/Plan Problem List: (1) GI bleed ICD Codes: K92.2 - Gastrointestinal hemorrhage, unspecified SNOMED: 19421297 (2) CHF (congestive heart failure) ICD Codes: I50.9 - Heart failure, unspecified SNOMED: 93835095 (3) CAD (coronary artery disease) ICD Codes: I25.10 - Atherosclerotic heart disease of [place] coronary artery without angina pectoris SNOMED: 01425657 Assessment/Plan: transfuse, gi studies 06/04 cleared violeta cardiology Subjective Constitutional: Reports: weakness HEENT: Reports: no symptoms Cardiovascular: Reports: no symptoms Respiratory: Reports: no symptoms Gastrointestinal/Abdominal: Reports: no symptoms Neurologic/Psychiatric: Reports: no symptoms Hematologic/Lymphatic: Reports: anemia Allergies: Coded Allergies: NO KNOWN DRUG ALLERGIES (Unverified Allergy, Unknown, 06/18/14) Objective Last 24 Hour Vital Signs Date Time Temp Pulse Resp B/P (MAP) Pulse Ox O2 Delivery O2 Flow Rate FiO2 06/03/19 08:00 80 06/03/19 08:00 96.7 76 20 108/75 (86) 91 06/03/19 04:00 98.7 74 20 102/63 (76) 94 06/03/19 03:35 68 06/03/19 00:00 98.8 80 18 145/75 (98) 99 06/02/19 23:29 69 06/02/19 21:00 Nasal Cannula 3.0 06/02/19 20:00 97.4 85 20 114/74 (87) 94 06/02/19 19:42 95 Nasal Cannula 3.0 32 06/02/19 19:42 76 20 95 Nasal Cannula 3.0 32 06/02/19 19:02 67 06/02/19 16:00 Nasal Cannula 3.0 06/02/19 16:00 97.9 78 20 106/70 (82) 94 06/02/19 16:00 72 Intake and Output 06/02/19 06/03/19 19:00 07:00 Intake Total 2440 ml 450 ml Output Total 1000 ml Balance 1440 ml 450 ml Intake Oral 2190 ml 450 ml Blood Product 250 ml Output Urine Total 1000 ml # Voids 2 # Bowel Movements 2 Laboratory Tests 06/02/19 14:45: White Blood Count 7.9, Red Blood Count 3.02L, Hemoglobin 7.6#L, Hematocrit 24.1# L, Mean Corpuscular Volume 80, Mean Corpuscular Hemoglobin 25.3L, Mean Corpuscular Hemoglobin Concent 31.7L, Red Cell Distribution Width 18.3H, Platelet Count 148L, Mean Platelet Volume 6.2L, Neutrophils (%) (Auto) , Lymphocytes (%) (Auto) , Monocytes (%) (Auto) , Eosinophils (%) (Auto) , Basophils (%) (Auto) , Differential Total Cells Counted 100, Neutrophils % ( Manual) 68, Lymphocytes % (Manual) 20, Monocytes % (Manual) 9, Eosinophils % ( Manual) 2, Basophils % (Manual) 1, Band Neutrophils 0, Platelet Estimate DecreasedL, Platelet Morphology Normal, Polychromasia 2+, Hypochromasia 2+, Anisocytosis 2+, Microcytosis 2+, Sodium Level 141, Potassium Level 4.3, Chloride Level 103, Carbon Dioxide Level 28, Anion Gap 10, Blood Urea Nitrogen 37H, Creatinine 1.3, Estimat Glomerular Filtration Rate > 60, Glucose Level 92, Calcium Level 8.8, Iron Level 17L, Total Iron Binding Capacity 376, Percent Iron Saturation 5L, Unsaturated Iron Binding 359H, Ferritin 42, Troponin I 0.048 06/03/19 03:10: White Blood Count 7.4, Red Blood Count 2.88L, Hemoglobin 7.3L, Hematocrit 22.8L , Mean Corpuscular Volume 79L, Mean Corpuscular Hemoglobin 25.5L, Mean Corpuscular Hemoglobin Concent 32.1, Red Cell Distribution Width 18.7H, Platelet Count 135L, Mean Platelet Volume 6.3L, Neutrophils (%) (Auto) , Lymphocytes (%) (Auto) , Monocytes (%) (Auto) , Eosinophils (%) (Auto) , Basophils (%) (Auto) , Sodium Level 139, Potassium Level 4.0, Chloride Level 104 , Carbon Dioxide Level 28, Anion Gap 7, Blood Urea Nitrogen 31H, Creatinine 1.3 , Estimat Glomerular Filtration Rate > 60, Glucose Level 77, Calcium Level 9.1, Troponin I 0.042 Height (Feet): 6 Height (Inches): 3.00 Weight (Pounds): 173 General Appearance: no apparent distress, alert EENT: normal ENT inspection Neck: normal alignment Cardiovascular: normal rate, regular rhythm Respiratory/Chest: lungs clear Abdomen: non tender Edema: no edema noted Arm (L), no edema noted Arm (R), no edema noted Leg (L), no edema noted Leg (R), no edema noted Pedal (L), no edema noted Pedal (R), no edema noted Generalized Enoc Glover MD Jun 03, 2019 12:03
[2019-06-03 16:00] VITALS: BP 101/67
[2019-06-03] MEDS ORDERED: XEROFORM TP (19:16)
[2019-06-03] MEDS ORDERED: VITAMIN A & D113 GM TP (19:16)
[2019-06-03] MEDS ORDERED: CRESTOR10 M2 ORAL (19:16)
[2019-06-03] MEDS ORDERED: ACETAMINOPHEN325 M1 ORAL (19:16)
--- NOTE | 2019-06-03 19:30 | NUR ---
NURSE NOTES: Received report from FARZANA Sahu. Patient is awake, sitting on bed, resting comfortably. A/Ox3. Denies pain at this time. No signs of acute distress noted. No IV access. Patient doesn't want IV to be inserted. Explained risk and benefits x3. Patient still refuses. Bed at lowest position, brakes on, siderailsx3. Call light within reach. Will continue to monitor.
--- NOTE | 2019-06-03 19:52 | General Progress Note ---
Assessment/Plan Assessment/Plan: Assessment - Severe anemia - s/p transfusion - chest pain- negative troponin - Amyloid - CM - a fib - CVA Recommendations - clear liquids - more laxative - follow CBC - transfuse PRN - EGD / colon Friday - 72 hrs after last Eliquis and Plavix Subjective Allergies: Coded Allergies: NO KNOWN DRUG ALLERGIES (Unverified Allergy, Unknown, 06/18/14) Subjective Feels ok (++) BM with prep no bleeding Objective Last 24 Hour Vital Signs Date Time Temp Pulse Resp B/P (MAP) Pulse Ox O2 Delivery O2 Flow Rate FiO2 06/03/19 16:00 60 06/03/19 16:00 97.3 68 20 101/67 (78) 06/03/19 12:00 96.3 71 20 105/71 (82) 88 06/03/19 12:00 60 06/03/19 09:00 Nasal Cannula 2.0 06/03/19 08:00 80 06/03/19 08:00 96.7 76 20 108/75 (86) 91 06/03/19 04:00 98.7 74 20 102/63 (76) 94 06/03/19 03:35 68 06/03/19 00:00 98.8 80 18 145/75 (98) 99 06/02/19 23:29 69 06/02/19 21:00 Nasal Cannula 3.0 06/02/19 20:00 97.4 85 20 114/74 (87) 94 Intake and Output 06/02/19 06/03/19 19:00 07:00 Intake Total 2440 ml 450 ml Output Total 1000 ml Balance 1440 ml 450 ml Intake Oral 2190 ml 450 ml Blood Product 250 ml Output Urine Total 1000 ml # Voids 2 # Bowel Movements 2 Laboratory Tests 06/03/19 03:10: White Blood Count 7.4, Red Blood Count 2.88L, Hemoglobin 7.3L, Hematocrit 22.8L , Mean Corpuscular Volume 79L, Mean Corpuscular Hemoglobin 25.5L, Mean Corpuscular Hemoglobin Concent 32.1, Red Cell Distribution Width 18.7H, Platelet Count 135L, Mean Platelet Volume 6.3L, Neutrophils (%) (Auto) , Lymphocytes (%) (Auto) , Monocytes (%) (Auto) , Eosinophils (%) (Auto) , Basophils (%) (Auto) , Sodium Level 139, Potassium Level 4.0, Chloride Level 104 , Carbon Dioxide Level 28, Anion Gap 7, Blood Urea Nitrogen 31H, Creatinine 1.3 , Estimat Glomerular Filtration Rate > 60, Glucose Level 77, Calcium Level 9.1, Troponin I 0.042 Height (Feet): 6 Height (Inches): 3.00 Weight (Pounds): 173 Objective WDWN NCAT supple CTA Reg rate abd soft no edema Eddie Stiles MD Jun 03, 2019 19:52
[2019-06-03 20:00] VITALS: BP 119/75
[2019-06-03] MEDS ORDERED: Sorbitol Solution UD 30ml ORAL SCH (20:00)
[2019-06-03] MEDS ORDERED: Bisacodyl EC 5mg tab ORAL SCH (20:00)
--- NOTE | 2019-06-03 20:20 | NUR ---
NURSE NOTES: Patient wandering around the hallway. Per TYING MACHINE OPERATOR LUMBER, patient requested to have a sandwich. Talked to patient and explained that he is on clear liquid diet and will have the procedure tomorrow. Patient is agitated and irritated. Patient stated, "You guys keep on canceling my procedure and I want to go home." Explained to patient that his procedure will be done tomorrow. Still, patient is irritated and kept on saying, "I want to go home." Patient refused to take medication. Paged Dr. Stiles regarding patient's condition. Per Dr. Stiles, no new orders at this time. Noted and charge nurse made aware.
--- NOTE | 2019-06-03 20:39 | NUR ---
HAND-OFF: Report given to Maite/FARZANA, pt in stable, will have procedure tomorrow.
[2019-06-04] VITALS (8 sets, daily range): BP systolic 90–117; BP diastolic 54–77
--- NOTE | 2019-06-04 00:15 | Progress Note ---
DATE: 06/03/2019 CARDIOLOGY PROGRESS NOTE SUBJECTIVE: The patient with no complaints of chest pain. No shortness of breath. Records from the retirement were confirmed with regard to his last dose of anticoagulation. Colonoscopy is postponed until tomorrow for three days to pass from his last dose of anticoagulation. OBJECTIVE: VITAL SIGNS: Temperature 101/67, pulse 68, respirations 20, and afebrile. LUNGS: Clear. CARDIAC: Irregularly irregular rhythm. Normal S1 and S2 with a fourth heart sound. ABDOMEN: Soft. EXTREMITIES: Trace edema. LABORATORY DATA: Hemoglobin 7.3. Potassium 4, BUN 31, and creatinine 1.3. Troponin 0.042. IMPRESSION: 1. Severe anemia. 2. Gastrointestinal bleed. 3. Acute myocardial ischemia. 4. Ischemic cardiomyopathy. 5. Paroxysmal atrial fibrillation. 6. Coagulopathy due to chronic therapy with apixaban. 7. History of coronary stenting. PLAN: 1. Additional unit of packed red blood cells. 2. Panendoscopy tomorrow. 3. Perioperative cardiovascular risk minimally increased. 4. No anti-platelet or anticoagulants at this time. 5. Maintenance hydration by IV route. Milton Kraft M.D. DR: MICHELE JOB#: [id number] CC:
--- NOTE | 2019-06-04 01:31 | NUR ---
NURSE NOTES: Resting throughout the night. No significant change of condition noted. Will continue to monitor.
--- NOTE | 2019-06-04 03:30 | NUR ---
NURSE NOTES: Charge nurse received call from lab and informed patient is active VRE rectum. Will notify Dr. Tucker in AM. Placed on contact precaution.
--- NOTE | 2019-06-04 06:30 | NUR ---
NURSE NOTES: Tried to placed IV line several times. No IV line access. GI lab and charge nurse made aware.
[2019-06-04 06:40] LABS: BASOPHILS % (AUTO) 1.5 % (0.0-2.0); EOSINOPHILS % (AUTO) 6.4 % (0.0-3.0); HEMATOCRIT 24.8 % (42.0-52.0); LYMPHOCYTES % (AUTO) 15.9 % (20.0-45.0); MEAN CORPUSCULAR VOLUME 79 FL (80-99); MONOCYTES % (AUTO) 13.1 % (1.0-10.0); NEUTROPHILS % (AUTO) 63.2 % (45.0-75.0); PLATELET COUNT 130 K/UL (150-450); RED BLOOD COUNT 3.16 M/UL (4.70-6.10); RED CELL DISTRIBUTION WIDTH 18.5 % (11.6-14.8)
--- NOTE | 2019-06-04 06:53 | NUR ---
NURSE NOTES: Patient was transferred to GI lab for EGD and colonoscopy accompanied by 2 staff member without any incident.
--- NOTE | 2019-06-04 06:54 | Anethesia Preoperative Eval ---
Anesthesia Pre-op PMH/ROS General Date of Evaluation: Jun 04, 2019 Time of Evaluation: 06:50 Anesthesiologist: Lisa Deras CRNA ASA Score: ASA 3 Mallampati Score Class I : Soft palate, uvula, fauces, pillars visible Class II: Soft palate, uvula, fauces visible Class III: Soft palate, base of uvula visible Class IV: Only hard plate visible Mallampati Classification: Class I Surgeon: iLnsey Diagnosis: Severe anemia, r/o GI bleed Surgical Procedure: EGD, colonoscopy Anesthesia History: none Family History: no anesthesia problems Allergies: Coded Allergies: NO KNOWN DRUG ALLERGIES (Unverified Allergy, Unknown, 06/18/14) Medications: see eMAR Patient NPO?: Yes NPO Date: Jun 04, 2019 NPO Time: 00:00 Past Medical History Cardiovascular: Reports: HTN, arrhythmia - A-fibrillation with normal rate, other - Chronic CHF; ACS Pulmonary: Reports: asthma, COPD Gastrointestinal/Genitourinary: Reports: GERD, other - BPH, renal insufficiency Neurologic/Psychiatric: Reports: CVA - LEFT sided weakness HEENT: Reports: other - legally blind Hematology/Immune: Reports: anemia Musculoskeletal/Integumentary: Reports: edema, other - PVD PMH Narrative: as noted above PSxH Narrative: see H & P Anesthesia Pre-op Phys. Exam Physician Exam Last Vital Signs Date Time Temp Pulse Resp B/P (MAP) Pulse Ox O2 Delivery O2 Flow Rate FiO2 06/04/19 04:00 70 06/04/19 04:00 98.5 16 116/75 (89) 99 06/03/19 21:00 Nasal Cannula 2.0 06/03/19 20:01 28 Constitutional: NAD Neurologic: other - left hemiplegia Respiratory: CTA, other - increased WOB, tachypnea Gastrointestinal: S/NT/ND Airway Exam Mallampati Score: Class I Neck: FROM TMD: > 3fb ROM: full Teeth: missing Dentures: upper, lower Anesthesia Pre-op A/P Labs Hematology Test 06/04/19 05:11 White Blood Count Pending Red Blood Count Pending Hemoglobin Pending Hematocrit Pending Mean Corpuscular Volume Pending Mean Corpuscular Hemoglobin Pending Mean Corpuscular Hemoglobin Concent Pending Red Cell Distribution Width Pending Platelet Count Pending Mean Platelet Volume Pending Neutrophils (%) (Auto) Pending Lymphocytes (%) (Auto) Pending Monocytes (%) (Auto) Pending Eosinophils (%) (Auto) Pending Basophils (%) (Auto) Pending Chemistry Test 06/04/19 05:11 Sodium Level Pending Potassium Level Pending Chloride Level Pending Carbon Dioxide Level Pending Blood Urea Nitrogen Pending Creatinine Pending Estimat Glomerular Filtration Rate Pending Glucose Level Pending Calcium Level Pending Studies Pre-op Studies: EKG - Normal rate, afib Risk Assessment & Plan Assessment: ASA 3, ok to proceed Plan: MAC Status Change Before Surgery: No Pre-Antibiotics Given Within 1 Hr of Incision: No Lisa Deras CRNA Jun 04, 2019 06:54
[2019-06-04] MEDS ORDERED: Propofol 200mg/20ml IV ONE (07:00)
[2019-06-04] MEDS ORDERED: Lidocaine 1% MPF 10mg/ml 5ml ONE (07:00)
[2019-06-04 07:02] LABS: ANION GAP 9 mmol/L (5-15); BLOOD UREA NITROGEN 22 mg/dL (7-18); CALCIUM 8.9 MG/DL (8.5-10.1); CARBON DIOXIDE 26 MMOL/L (21-32); CHLORIDE 104 MMOL/L (98-107); CREATININE 1.2 MG/DL (0.55-1.30); POTASSIUM 3.9 MMOL/L (3.5-5.1); SODIUM 139 MMOL/L (136-145)
[2019-06-04] MEDS ORDERED: NS 500ML IVPB ONE (07:10)
--- NOTE | 2019-06-04 07:12 | NUR ---
HAND-OFF: Report given to FARZANA Sahu. Plan of care endorsed.
[2019-06-04] MEDS ORDERED: fentaNYL 100 mcg/2 mL IV ONE (07:16)
--- NOTE | 2019-06-04 07:23 | Pre-Procedure Note/Attestation ---
Pre-Procedure Note/Attestation Complete Prior to Procedure Planned Procedure: not applicable Procedure Narrative: esophagogastroduodenoscopy colon Indications for Procedure Pre-Operative Diagnosis: anemia Attestation I attest that I discussed the nature of the procedure; its benefits; risks and complications; and alternatives (and the risks and benefits of such alternatives ), prior to the procedure, with the patient (or the patient's legal physician relations representative). I attest that, if there was a reasonable possibility of needing a blood transfusion, the patient (or the patient's legal physician relations representative) was given the [facility] standardized written summary, pursuant to the Herbert Rene Blood Safety Act ([place] Health and Safety Code # 1645, as amended). I attest that I re-evaluated the patient just prior to the surgery and that there has been no change in the patient's H&P, except as documented below: Eddie Stiles MD Jun 04, 2019 07:23
--- NOTE | 2019-06-04 07:26 | General Progress Note ---
Assessment/Plan Assessment/Plan: Assessment - Severe anemia - s/p transfusion - chest pain- negative troponin - Amyloid - CM - a fib - CVA Recommendations - NPO - follow CBC - transfuse PRN - EGD / colon today POST PROCEDURE EGD: - Erosive gastritis - s/p biopsy and enoclip Colon: - unable to complete due to poor preparation - no mass lesion to a level of sigmoidoscopy Recommendations - resume PO diet - PPI - Rx HP - bowel regimen / laxatives - can reschedule colonoscopy for Friday Subjective Allergies: Coded Allergies: NO KNOWN DRUG ALLERGIES (Unverified Allergy, Unknown, 06/18/14) Subjective Feels ok seen in GI lab NPO for EGD/Colon last dose of Eliquis and Plavix 3 days ago Objective Last 24 Hour Vital Signs Date Time Temp Pulse Resp B/P (MAP) Pulse Ox O2 Delivery O2 Flow Rate FiO2 06/04/19 04:00 70 06/04/19 04:00 98.5 85 16 116/75 (89) 99 06/04/19 00:00 97.6 80 16 114/71 (85) 99 06/04/19 00:00 84 06/03/19 21:00 Nasal Cannula 2.0 06/03/19 20:01 96 Nasal Cannula 2.0 28 06/03/19 20:01 86 20 96 Nasal Cannula 2.0 28 06/03/19 20:00 86 06/03/19 20:00 97.2 78 18 119/75 (90) 96 06/03/19 16:00 67 06/03/19 16:00 97.3 68 20 101/67 (78) 06/03/19 12:00 96.3 71 20 105/71 (82) 88 06/03/19 09:00 Nasal Cannula 2.0 06/03/19 08:00 80 06/03/19 08:00 96.7 76 20 108/75 (86) 91 Intake and Output 06/03/19 06/04/19 19:00 07:00 Intake Total 2000 ml Balance 2000 ml Intake Oral 2000 ml # Voids 4 2 Laboratory Tests 06/04/19 05:11: White Blood Count 7.0, Red Blood Count 3.16L, Hemoglobin 8.0L, Hematocrit 24.8L , Mean Corpuscular Volume 79L, Mean Corpuscular Hemoglobin 25.4L, Mean Corpuscular Hemoglobin Concent 32.3, Red Cell Distribution Width 18.5H, Platelet Count 130L, Mean Platelet Volume 6.7, Neutrophils (%) (Auto) 63.2, Lymphocytes (%) (Auto) 15.9L, Monocytes (%) (Auto) 13.1H, Eosinophils (%) (Auto ) 6.4H, Basophils (%) (Auto) 1.5, Sodium Level 139, Potassium Level 3.9, Chloride Level 104, Carbon Dioxide Level 26, Anion Gap 9, Blood Urea Nitrogen 22H, Creatinine 1.2, Estimat Glomerular Filtration Rate > 60, Glucose Level 75, Calcium Level 8.9 Height (Feet): 6 Height (Inches): 2.00 Weight (Pounds): 173 Objective WDWN NCAT supple CTA Reg rate abd soft no edema Eddie Stiles MD Jun 04, 2019 07:26
--- NOTE | 2019-06-04 08:09 | Immediate Post-Op Evaluation ---
Immediate Post-Op Evalulation Immediate Post-Op Evalulation Procedure: EGD, flexible sigmoidoscopy Date of Evaluation: Jun 04, 2019 Time of Evaluation: 08:05 IV Fluids: 0.9 NS 300 ml Blood Pressure Systolic: 90 Blood Pressure Diastolic: 57 Pulse Rate: 63 Respiratory Rate: 16 O2 Sat by Pulse Oximetry: 99 Temperature (Fahrenheit): 97.3 Pain Score (1-10): 0 Nausea: No Vomiting: No Complications none Patient Status: awake, patent Hydration Status: adequate Given Within 1 Hr of Incision: Lisa Luna CRNA Jun 04, 2019 08:09
[2019-06-04] MEDS ORDERED: Sorbitol Solution UD 30ml ORAL ONE (09:00)
[2019-06-04] MEDS: Pantoprazole Inj IVP SCH (09:42)
--- NOTE | 2019-06-04 11:27 | 48 Hour Post Anesthesia Eval ---
Post Anesthesia Evaluation Procedure: EGD, flexible sigmoidoscopy Date of Evaluation: Jun 04, 2019 Time of Evaluation: 11:26 Blood Pressure Systolic: 101 0: 62 Pulse Rate: 63 Respiratory Rate: 17 Temperature (Fahrenheit): 97.9 O2 Sat by Pulse Oximetry: 99 Airway: patent Nausea: No Vomiting: No If pain is > 6 Comment: 0 Hydration Status: adequate Cardiopulmonary Status: stable Mental Status/LOC: patient returned to baseline Follow-up Care/Observations: per hospitalist Post-Anesthesia Complications: none Follow-up care needed: N/A Lisa Deras CRNA Jun 04, 2019 11:27
--- NOTE | 2019-06-04 13:10 | NUR ---
NURSE NOTES: doctor Adalberto might DC pt after speaking to Dr. Lyles. L/M for Doris, Dr. Glover wants to know if pt has a bed available at [facility]
[2019-06-04] MEDS ORDERED: NS 275ml ONE ×2 (13:39→19:59)
[2019-06-04] MEDS ORDERED: Tubing Blood Filter IV ONE (13:39)
[2019-06-04] MEDS ORDERED: LOSARTAN POTASS50 MG ORAL (13:40)
[2019-06-04] MEDS ORDERED: POTASSIUM CHLO20 ME1 ORAL (13:40)
[2019-06-04] MEDS ORDERED: FERROUS SULFAT325 M2 ORAL (13:40)
[2019-06-04] MEDS ORDERED: PROTONIX40 MG ORAL (13:40)
[2019-06-04] MEDS ORDERED: METOPROLOL SUCC25 MG ORAL (13:45)
--- NOTE | 2019-06-04 14:27 | NUR ---
DISCHARGE PLAN DISCHARGE ORDER NOTED FAXED CLINICALS TO [facility] WAITING FOR RESPONSE WITH ASSIGNED ROOM NUMBER
--- NOTE | 2019-06-04 14:54 | Endoscopy Procedure Note ---
Endoscopy Procedure Note General Indication for Procedure: anemia Procedures Performed: EGD, colonoscopy Operative Findings/Diagnosis: erosive gastritis, poor prep Specimen: yes Pt Tolerated Procedure Well: Yes Estimated Blood Loss: none Anesthesia Anesthesiologist: see report Anesthesia: MAC Medications Medication Given: see anesthesia record Inserted Devices Implant(s) used?: No GI Core Measures 50 yrs or older w/o bx or poly: Not Applicable 10yrs. F/U recommended: Not Applicable Eddie Stiles MD Jun 04, 2019 14:54
--- NOTE | 2019-06-04 14:56 | Brief Operative Note ---
Immediate Post Operative Note Operative Note Chief Complaint: anemia Pre-op Diagnosis: anemia Procedure: esophagogastroduodenoscopy bx, f/s Surgeon: chloe Anesthesiologist: see report Anesthesia: MAC Specimen: yes Complications: none Condition: stable Fluids: per anesthesia Estimated Blood Loss: none Drains: none Implant(s) used?: No Eddie Stiles MD Jun 04, 2019 14:56
[2019-06-04] MEDS ORDERED: Iron Sucrose 100 MG in NS 55 ML IV SCH (15:00)
--- NOTE | 2019-06-04 16:29 | NUR ---
*-*DISCHARGE PLANNED*-* PATIENT IS BEING DISCHARGE BACK TO: [facility] P: [phone] F: [phone] RM# [id number] PER NURSE TO NURSE REPORT P:[phone] [facility] S/W RANDELL [id number] ETA 6:30PM/ 1830PM
[2019-06-04] MEDS ORDERED: Tubing IV Secondary IV ONE (19:59)
--- NOTE | 2019-06-04 20:12 | NUR ---
HAND-OFF: Report given to Ambulance halima. Pt stable and going to [facility]. Day shift RN reported that she gave report to
--- NOTE | 2019-06-04 20:15 | Operative Note - Dictated ---
DATE OF OPERATION: 06/04/2019 PROCEDURE: Upper gastrointestinal endoscopy with biopsy and hemostasis as well as colonoscopy, which was converted to sigmoidoscopy. SURGEON: Eddie Stiles M.D. ANESTHESIA: Please see the separate anesthesiologist notes for details. PRE-ENDOSCOPIC DIAGNOSIS: Anemia. POST-ENDOSCOPIC DIAGNOSES: 1. Erosive gastritis, status post biopsy followed by Endoclip placement for hemostasis. 2. Poor colonic preparation, making the colonoscopy not possible. FAMILY HISTORY: Positive for diabetes. DESCRIPTION OF PROCEDURE: The procedure its risks, indications, alternatives, and possible complications were explained to the patient and informed consent was obtained. The patient was then sedated in the left lateral decubitus position and the diagnostic upper endoscope was introduced through the oropharynx and advanced to the duodenum. The endoscope was then gradually withdrawn and mucosa examined carefully. Examination was notable for erosive gastritis. A single biopsy of the antrum were sent to pathology for review. There was oozing of the blood after the biopsy and therefore, an Endoclip was placed to stop the bleeding successfully. The endoscope was removed. The rectal exam was done. The colonoscope was introduced in the rectum and advanced to about 60 cm. The colonic preparation was extremely poor, making further advancement not possible. The colonoscope was withdrawn, but visualization was poor. No constricting lesions were seen, but small polyps could have been missed. The patient was sent to recovery in good condition. RECOMMENDATIONS: 1. Follow up biopsy results. 2. Check and treat Helicobacter pylori if positive. 3. Repeat colonoscopy in the next week or as an outpatient. Eddie Stiles M.D. DR: CLEMENT JOB#: [id number] CC:
--- NOTE | 2019-06-04 20:45 | NUR ---
HAND-OFF: Report given to Rika/FARZANA pt in stable condition about to be DC today. Pt was told to follow up with doctor Linsey for Colonoscopy.
--- NOTE | 2019-06-04 22:30 | Discharge Summary ---
DATE OF ADMISSION: 06/01/2019 DATE OF DISCHARGE: 06/04/2019 PERTINENT HISTORY: The patient presents with severe anemia, weakness, shortness of breath, vague chest pain. He is on anticoagulants for paroxysmal atrial fibrillation. There is a history of CHF, COPD, peripheral vascular disease, prior CVA. PERTINENT PHYSICAL FINDINGS: See my dictation. HEAD, EYES, EARS, NOSE, AND THROAT: Unremarkable. LUNGS: Clear. HEART: Regular rhythm. No murmur. ABDOMEN: Soft without organomegaly. EXTREMITIES: No edema. There is large dressing on the right leg. COURSE IN THE HOSPITAL: The patient had hemoglobin on admission, was transfused. He had mild elevation of troponin. The patient was stopped on his anticoagulants and cleared by Dr. Kraft for endoscopy. I do not have any final endoscopy report on this dictation, but colonoscopy was incomplete due to poor prep. The patient at the time of discharge felt well. No shortness of breath, angina, nausea, or abdominal pain. He was discharged back to his ECF. I discussed with Dr. Stiles who plans to do a full colonoscopy at a later date. PHYSICAL EXAMINATION: GENERAL: On the day of discharge, he was in no distress. LUNGS: Clear. HEART: Regular rhythm. ABDOMEN: Nontender. EXTREMITIES: No edema. FINAL DIAGNOSES: 1. Gastrointestinal bleeding in a patient on anticoagulants. 2. Anemia secondary to blood loss. 3. Gastritis. 4. COPD. 5. Chronic diastolic CHF. 6. Acute coronary ischemia due to severe anemia. 7. Acute on chronic diastolic CHF, compensated. 8. Ischemic cardiomyopathy with a history of coronary stents. 9. Hypertensive heart disease. 10. Coagulopathy due to the chronic use of apixaban. 11. Paroxysmal atrial fibrillation. PLAN: Discharge to the [facility] on a cardiac diet and medications per the discharge medication list. Follow up by his primary care physician, Dr. Faye oGdinez who is not on this hospital staff and Dr. Stiles will try to arrange colonoscopy. Enoc Glover M.D. DR: CAIO JOB#: [id number] CC:
--- NOTE | 2019-06-05 06:10 | Progress Note ---
DATE: 06/04/2019 CARDIOLOGY PROGRESS NOTE SUBJECTIVE: The patient is status post endoscopy today with gastritis found, but no active bleeding. Colonoscopy was deferred due to a poor prep. The patient's hemoglobin is stable following transfusion. PHYSICAL EXAMINATION: VITAL SIGNS: Blood pressure 114/70, heart rate 67, respiratory rate 20. No fevers. LUNGS: Clear. CARDIAC: Regular. Normal S1 and S2. ABDOMEN: Soft. EXTREMITIES: No edema. IMPRESSION: 1. Coronary artery disease. 2. Paroxysmal atrial fibrillation. 3. History of coronary stenting. 4. Severe anemia. 5. Acute myocardial ischemia, precipitated by severe anemia. 6. Possible gastrointestinal bleeding. PLAN: 1. Transfer to intermediate facility is planned. We would not resume anticoagulation until completion of full gastrointestinal workup. 2. Monitor hemoglobin cautiously. 3. Resume anti-platelet therapy. 4. Monitor blood counts regularly. 5. Pending completion of GI workup. 6. Discussed with primary care physician. Milton Kraft M.D. DR: YEIMI JOB#: [id number] CC:
--- NOTE | 2019-06-07 16:15 | Operative Note - Dictated ---
DATE OF OPERATION: 06/04/2019 GASTROENTEROLOGY PROCEDURE REPORT PROCEDURE: Upper gastrointestinal endoscopy with biopsy and Endoclip hemostasis as well as flexible sigmoidoscopy. SURGEON: Eddie Stiles M.D. ANESTHESIA: Please see the separate anesthesiologist notes for details. PRE-ENDOSCOPIC DIAGNOSIS: Anemia. POST-ENDOSCOPIC DIAGNOSES: 1. Erosive gastritis, status post biopsy and Endoclip placement. 2. Poor colonic preparation. 3. Only flexible sigmoidoscopy to 60 cm could be done, which did not show any constrictive lesions or mass lesions, but smaller polyps could not be seen. DESCRIPTION OF PROCEDURE: The procedure its risks, indications, alternatives, and possible complications were explained to the patient and informed consent was obtained. The patient was then sedated. A diagnostic upper endoscope was introduced through oropharynx and advanced to the duodenum. The endoscope was then gradually withdrawn and mucosa was examined carefully. Examination of the upper gastrointestinal mucosa revealed erosive gastritis. Biopsies of the antrum were sent to pathology for review and a single Endoclip was placed to treat the oozing seen from the site. The remainder of the upper gastrointestinal examination was unremarkable. The patient was then turned around. The rectal exam was done and colonoscope was introduced in the rectum and advanced to 60 cm. The colonic preparation was poor with semi-solid material, which was dark throughout. The colonoscopy was eventually abandoned at the level of the sigmoidoscopy at 60 cm. The smaller lesions could not be seen, but large masses or constrictive lesions were ruled out. The colonoscope was removed. The patient was sent to Recovery in good condition. COMPLICATIONS: None. RECOMMENDATIONS: 1. Follow up biopsy results. 2. Proton pump inhibitor. 3. Check and treat Helicobacter pylori if positive. 4. Repeat colonoscopy Friday next week. Eddie Stiles M.D. DR: JEFFREY JOB#: [id number] CC:
== END 2019-06-04 20:00 | DRG 377 ==
LOC: EDBD 16:19 → EDUNIT# 16:19 → EMR 17:13 → 2W 17:16 → EDBEDREQ 20:16 → 2W 23:43 → 2E 06-03 07:30
PROC: 30233N1 Transfusion of Nonautologous Red Blood Cells into Peripheral Vein, Percutaneous Approach (ICD-10-PCS; 2019-06-01)
PROC: 0DB78ZX Excision of Stomach, Pylorus, Via Natural or Artificial Opening Endoscopic, Diagnostic (ICD-10-PCS; principal; 2019-06-04 07:28)
PROC: 0W3P8ZZ Control Bleeding in Gastrointestinal Tract, Via Natural or Artificial Opening Endoscopic (ICD-10-PCS; principal; 2019-06-04 07:28)
PROC: 0DJD8ZZ Inspection of Lower Intestinal Tract, Via Natural or Artificial Opening Endoscopic (ICD-10-PCS; principal; 2019-06-04 07:28)
DX: K29.71 Gastritis, unspecified, with bleeding (principal); I50.33 Acute on chronic diastolic (congestive) heart failure; D68.32 Hemorrhagic disorder due to extrinsic circulating anticoagulants; J44.1 Chronic obstructive pulmonary disease with (acute) exacerbation; I24.0 Acute coronary thrombosis not resulting in myocardial infarction; I13.0 Hypertensive heart and chronic kidney disease with heart failure and stage 1 through stage 4 chronic kidney disease, or unspecified chronic kidney disease; T45.515A Adverse effect of anticoagulants, initial encounter; I48.0 Paroxysmal atrial fibrillation; D50.0 Iron deficiency anemia secondary to blood loss (chronic); K29.70 Gastritis, unspecified, without bleeding; I25.5 Ischemic cardiomyopathy; E78.5 Hyperlipidemia, unspecified; N40.0 Benign prostatic hyperplasia without lower urinary tract symptoms; R26.9 Unspecified abnormalities of gait and mobility; Z86.73 Personal history of transient ischemic attack (TIA), and cerebral infarction without residual deficits; N18.9 Chronic kidney disease, unspecified; I73.9 Peripheral vascular disease, unspecified; I25.10 Atherosclerotic heart disease of native coronary artery without angina pectoris; Z95.5 Presence of coronary angioplasty implant and graft; Z86.14 Personal history of Methicillin resistant Staphylococcus aureus infection
CPT/HCPCS: 36415; 71045; 80048; 80053; 82270; 82728; 83540; 83550; 83880; 84484; 85007; 85025; 85610; 85730; 86850; 86900; 86901; 86920; 87081; 93005; 93306; 94003; 94150; 94664; 99285; J0171